=== PATIENT | male | born 1960 | race Caucasian/White ===

== ENCOUNTER 2016-10-24 03:58 | Emergency (ER) | payer BC ==
[~2016-10-24] VITALS: Ht 188 cm; Wt 99.8 kg
[2016-10-24] MEDS ORDERED: AMLODIPINE-BEN1 EAC5 PO (05:00)
[2016-10-24] MEDS ORDERED: LEVEMIR FL100 UNIT/2 SUB-Q (05:00)
[2016-10-24] MEDS ORDERED: HYDROCHLOROTHIA25 MG PO (05:01)
[2016-10-24] MEDS ORDERED: SIMVASTATIN20 MG PO (05:01)
[2016-10-24] MEDS ORDERED: OMEPRAZOLE20 MG PO (05:02)
[2016-10-24] MEDS ORDERED: METFORMIN HCL1000 MG PO (05:02)
[2016-10-24] MEDS ORDERED: GLYXAMBI 25 MG1 EACH PO (05:03)
--- NOTE | 2016-10-24 15:38 | EKG ---
[facility] [address] [place] [address] Signed Sinus rhythm with frequent premature ventricular complexes in a pattern of bigeminy Abnormal QRS-T angle, consider primary T wave abnormality Abnormal ECG No previous ECGs available Confirmed by MOHSEN MORILLO MD ([id number]) on 10/24/2016 3:38:05 PM Electronically Signed By: MOHSEN MORILLO MD 10/24/16 1538 PATIENT NAME: ZELDA OHRT KIM Electrocardiogram DATE OF : 58 PHYSICIAN: MOHSEN MORILLO MD REPORT #: [id number] REPORT IS CONFIDENTIAL AND NOT TO BE RELEASED WITHOUT AUTHORIZATION
== END 2016-10-24 05:41 | disposition home or self-care (01) ==
LOC: ED 03:58
DX: R07.89 Other chest pain (principal); I10 Essential (primary) hypertension; E11.9 Type 2 diabetes mellitus without complications; F17.200 Nicotine dependence, unspecified, uncomplicated; Z88.0 Allergy status to penicillin; Z79.4 Long term (current) use of insulin; Z79.899 Other long term (current) drug therapy
CPT/HCPCS: 71010; 80053; 84484; 85025; 93005; 93010; 99284

== ENCOUNTER 2019-12-27 10:31 | Emergency (ER) | payer OTHER ==
[~2019-12-27] VITALS: Ht 188 cm; Wt 99.8 kg
[~2019-12-27 10:31] MED LIST: AMLODIPINE-BEN1 EAC5 PO; GLYXAMBI 25 MG1 EACH PO; HYDROCHLOROTHIA25 MG PO; LEVEMIR FL100 UNIT/2 SUB-Q; METFORMIN HCL1000 MG PO; OMEPRAZOLE20 MG PO; SIMVASTATIN20 MG PO
[2019-12-27] MEDS ORDERED: TRULICITY1.5 MG/0.5 SUB-Q (10:54)
[2019-12-27] MEDS ORDERED: PIOGLITAZONE HC30 MG PO (10:55)
[2019-12-27] MEDS ORDERED: HYDROCHLOROTHIA50 MG PO (10:56)
[2019-12-27] MEDS ORDERED: ROBAXIN-750750 MG PO (12:17)
== END 2019-12-27 12:26 | disposition home or self-care (01) ==
LOC: ED 10:31
DX: S33.5XXA Sprain of ligaments of lumbar spine, initial encounter (principal)
CPT/HCPCS: 72100; 99283-25

== ENCOUNTER 2022-05-08 01:15 | Emergency (ER) | payer BC ==
[~2022-05-08] VITALS: Ht 188 cm; Wt 99.8 kg
[~2022-05-08 01:15] MED LIST changes: +HYDROCHLOROTHIA50 MG PO; +PIOGLITAZONE HC30 MG PO; +ROBAXIN-750750 MG PO; +TRULICITY1.5 MG/0.5 SUB-Q
[2022-05-08] MEDS ORDERED: METOPROLOL SUCC50 MG PO (01:35)
[2022-05-08] MEDS ORDERED: NOVOLOG MI100 UNIT/1 SUB-Q (01:37)
== END 2022-05-08 02:45 | disposition home or self-care (01) ==
LOC: ED 01:15
DX: R60.0 Localized edema (principal); I10 Essential (primary) hypertension; E11.9 Type 2 diabetes mellitus without complications; F17.200 Nicotine dependence, unspecified, uncomplicated; Z88.0 Allergy status to penicillin; Z79.899 Other long term (current) drug therapy; Z79.4 Long term (current) use of insulin; Z79.84 Long term (current) use of oral hypoglycemic drugs
CPT/HCPCS: 36415; 71045; 80053; 81003; 85025; 85379; 99284-25

== ENCOUNTER 2022-11-07 09:05 | Emergency (ER) | payer OTHER, BC ==
[~2022-11-07] VITALS: Ht 188 cm; Wt 112.0 kg
--- OUTSIDE RECORDS SUMMARY | ~2022-11-07 | XMS | Continuity of Care Document ---
Demographics + + + | Address | [address] | | | [place] [address] | + + + | Preferred Language | Unknown | + + + | Marital Status | | + + + | Hoahaoism Affiliation | Unknown | + + + | Race | White | + + + | Ethnic Group | Not or | + + + Author + + + | Author | [facility] | + + + | Organization | [facility] | + + + | Address | [address] | | | [place] [address] | + + + | Phone | | + + + Care Team Providers + + + + | Care Household Personal Assistant Name | Role | Phone | + + + + Unavailable | Unavailable | + + + + Unavailable | Unavailable | + + + + Allergies and Intolerances + + + + + + | date | description | facility | reaction | severity | + + + + + + | (no date) | Penicillin | [facility] | (no reaction) | (no severity) | [facility] | | | + + + + + + | (no date) | Penicillin | [facility] | (no reaction) | (no severity) | | [facility] | | | + + + + + + | (no date) | Penicillin | [facility] | (no reaction) | (no severity) | [facility] | | | + + + + + + | (no date) | Penicillin | [facility] | (no reaction) | (no severity) | | [facility] | | | + + + + + + Encounters No information. Functional Status No information. Immunizations No information. Medications + + + + | date | description | facility | + + + + | 2019-12-27 00:00 | METHOCARBAMOL | [facility] | + + + + | 2022-05-08 00:00 | DULAGLUTIDE | [facility] | + + + + | 2022-05-08 00:00 | EMPAGLIFLOZIN/LINAGLIPTIN | [facility] | + + + + | 2022-05-08 00:00 | HYDROCHLOROTHIAZIDE | [facility] | + + + + | 2022-05-08 00:00 | OMEPRAZOLE | [facility] | + + + + | 2022-05-08 00:00 | HYDROCHLOROTHIAZIDE | [facility] | + + + + | 2022-05-08 00:00 | PIOGLITAZONE HCL | [facility] | + + + + | 2022-05-08 00:00 | SIMVASTATIN | [facility] | + + + + | 2022-05-08 00:00 | INSULIN DETEMIR | [facility] | + + + + | 2022-05-08 00:00 | METFORMIN HCL | [facility] | + + + + | 2022-05-08 00:00 | METOPROLOL SUCCINATE | [facility] | + + + + | 2022-05-08 00:00 | AMLODIPINE | [facility] | | | BESYLATE/BENAZEPRIL | | + + + + | 2022-05-08 00:00 | INSULN ASP PRT/INSULIN | [facility] | | | ASPART | | + + + + Problems + + + + | date | description | facility | + + + + | 2016-10-24 00:00 | Nonspecific chest pain | [facility] | + + + + | 2022-05-08 00:00 | Edema of both lower | [facility] | | | extremities | | + + + + Procedures No information. Results/Labs +--------+--------+ +---------+--------+---------+ | test | date | facility | value | unit | notes | +--------+--------+ +---------+--------+---------+ + + | Result panel 1 | + + + + + +-------+ + + | | 2022-05-08 | [facility] | 8.7 | (missing) | (missing) | | (unavailable | [facility] | | | | + + + +-------+ + + + + | Result panel 2 | + + + + + +--------+ + + | | 2022-05-08 | [facility] | 68.0 | (missing) | (missing) | | (unavailable | [facility] | | | | + + + +--------+ + + + + | Result panel 3 | + + + + + +--------+ + + | | 2022-05-08 | [facility] | 20.6 | (missing) | (missing) | | (unavailable | [facility] | | | | + + + +--------+ + + + + | Result panel 4 | + + + + + +-------+ + + | | 2022-05-08 | [facility] | 8.5 | (missing) | (missing) | | (unavailable | [facility] | | | | + + + +-------+ + + + + | Result panel 5 | + + + + + +-------+ + + | | 2022-05-08 | [facility] | 1.8 | (missing) | (missing) | | (unavailable | [facility] | | | | + + + +-------+ + + + + | Result panel 6 | + + + + + +-------+ + + | | 2022-05-08 | [facility] | 1.1 | (missing) | (missing) | | (unavailable | [facility] | | | + + + +-------+ + + + + | Result panel 7 | + + + + + +--------+ + + | | 2022-05-08 | [facility] | 0.50 | (missing) | (missing) | | (unavailable | [facility] | | | | + + + +--------+ + + + + | Result panel 8 | + + + + + +--------+ + + | | 2022-05-08 | [facility] | 4.72 | (missing) | (missing) | | (unavailable | [facility] | | | + + + +--------+ + + + + | Result panel 9 | + + + + + +-------+---------+ + | | 2022-05-08 | [facility] | 262 | mg/dL | (missing) | | (unavailable | [facility]08 [facility] | | | + + + +-------+---------+ + + + | Result panel 10 | + + + + + +------+---------+ + | | 2022-05-08 | [facility] | 17 | mg/dL | (missing) | | (unavailable | [facility]08 [facility] | | | + + + +------+---------+ + + + | Result panel 11 | + + + + + +--------+ + + | | 2022-05-08 | [facility] | 13.5 | (missing) | (missing) | | (unavailable | [facility] | | | + + + +--------+ + + + + | Result panel 12 | + + + + + +--------+---------+ + | | 2022-05-08 | [facility] | 1.07 | mg/dL | (missing) | | (unavailable | [facility] | | | + + + +--------+---------+ + + + | Result panel 13 | + + + + + +------+ + + | | 2022-05-08 | [facility] | 78 | (missing) | (missing) | | (unavailable | [facility] | | | + + + +------+ + + + + | Result panel 14 | + + + + + +---------+ + + | | 2022-05-08 | [facility] | 15.88 | (missing) | (missing) | | (unavailable | [facility] | | | | + + + +---------+ + + + + | Result panel 15 | + + + + + +-------+ + + | | 2022-05-08 | [facility] | 138 | (missing) | (missing) | | (unavailable | [facility] | | | + + + +-------+ + + + + | Result panel 16 | + + + + + +-------+ + + | | 2022-05-08 | [facility] | 4.0 | (missing) | (missing) | | (unavailable | [facility] | | | + + + +-------+ + + + + | Result panel 17 | + + + + + +-------+ + + | | 2022-05-08 | [facility] | 101 | (missing) | (missing) | | (unavailable | [facility]08 [facility] | | | + + + +-------+ + + + + | Result panel 18 | + + + + + +------+ + + | | 2022-05-08 | [facility] | 28 | (missing) | (missing) | | (unavailable | [facility]08 [facility] | | | + + + +------+ + + + + | Result panel 19 | + + + + + +--------+ + + | | 2022-05-08 | [facility] | 13.0 | (missing) | (missing) | | (unavailable | [facility] | | | + + + +--------+ + + + + | Result panel 20 | + + + + + +-------+---------+ + | | 2022-05-08 | [facility] | 8.4 | mg/dL | (missing) | | (unavailable | [facility]08 [facility] | | | + + + +-------+---------+ + + + | Result panel 21 | + + + + + +-------+ + + | | 2022-05-08 | [facility] | 7.3 | (missing) | (missing) | | (unavailable | [facility] | | | + + + +-------+ + + + + | Result panel 22 | + + + + + +--------+ + + | | 2022-05-08 | [facility] | 39.9 | (missing) | (missing) | | (unavailable | [facility] | | | + + + +--------+ + + + + | Result panel 23 | + + + + + +-------+ + + | | 2022-05-08 | [facility] | 3.7 | (missing) | (missing) | | (unavailable | [facility] | | | + + + +-------+ + + + + | Result panel 24 | + + + + + +-------+ + + | | 2022-05-08 | [facility] | 3.6 | (missing) | (missing) | | (unavailable | [facility] | | | + + + +-------+ + + + + | Result panel 25 | + + + + + +--------+ + + | | 2022-05-08 | [facility] | 1.03 | (missing) | (missing) | | (unavailable | [facility] | | | + + + +--------+ + + + + | Result panel 26 | + + + + + +-------+ + + | | 2022-05-08 | [facility] | 0.4 | (missing) | (missing) | | (unavailable | [facility] | | | + + + +-------+ + + + + | Result panel 27 | + + + + + +------+ + + | | 2022-05-08 | [facility] | 16 | (missing) | (missing) | | (unavailable | [facility]08 [facility] | | | + + + +------+ + + + + | Result panel 28 | + + + + + +------+ + + | | 2022-05-08 | [facility] | 22 | (missing) | (missing) | | (unavailable | [facility]08 [facility] | | | + + + +------+ + + + + | Result panel 29 | + + + + + +------+ + + | | 2022-05-08 | [facility] | 74 | (missing) | (missing) | | (unavailable | [facility]08 [facility] | | | + + + +------+ + + + + | Result panel 30 | + + + + + +--------+ + + | | 2022-05-08 | [facility] | 84.6 | (missing) | (missing) | | (unavailable | [facility]08 [facility] | | | + + + +--------+ + + + + | Result panel 31 | + + + + + +--------+ + + | | 2022-05-08 | [facility] | 28.6 | (missing) | (missing) | | (unavailable | [facility]08 [facility] | | | + + + +--------+ + + + + | Result panel 32 | + + + + + +--------+ + + | | 2022-05-08 | [facility] | 33.7 | (missing) | (missing) | | (unavailable | [facility]08 [facility] | | | + + + +--------+ + + + + | Result panel 33 | + + + + + +--------+ + + | | 2022-05-08 | [facility] | 14.8 | (missing) | (missing) | | (unavailable | [facility] | | | + + + +--------+ + + + + | Result panel 34 | + + + + + +-------+ + + | | 2022-05-08 | [facility] | 257 | (missing) | (missing) | | (unavailable | [facility]08 [facility] | | | + + + +-------+ + + + + | Result panel 35 | + + + + + + + + + | | 2022-05-08 | [facility] | YELLOW | (missing) | (missing) | | (unavailable | [facility]23:08 [facility] | | | | + + + + + + + + + | Result panel 36 | + + + + + +---------+ + + | | 2022-05-08 | [facility] | CLEAR | (missing) | (missing) | | (unavailable | [facility]23[facility]08 [facility] | | | | + + + +---------+ + + + + | Result panel 37 | + + + + + + + + + | | 2022-05-08 | [facility] | MODERATE | (missing) | (missing) | | (unavailable | [facility]23:08 [facility] | | | | + + + + + + + + + | Result panel 38 | + + + + + + + + + | | 2022-05-08 | [facility] | NEGATIVE | (missing) | (missing) | | (unavailable | [facility]23:08 [facility] | | | | + + + + + + + + + | Result panel 39 | + + + + + + + + + | | 2022-05-08 | [facility] | NEGATIVE | (missing) | (missing) | | (unavailable | [facility]23:08 [facility] | | | | + + + + + + + + + | Result panel 40 | + + + + + +---------+ + + | | 2022-05-08 | [facility] | 1.025 | (missing) | (missing) | | (unavailable | [facility]23:08 [facility] | | | | + + + +---------+ + + + + | Result panel 41 | + + + + + + + + + | | 2022-05-08 | [facility] | NEGATIVE | (missing) | (missing) | | (unavailable | [facility]23[facility]08 [facility] | | | + + + + + + + + + | Result panel 42 | + + + + + +-------+ + + | | 2022-05-08 | [facility] | 6.0 | (missing) | (missing) | | (unavailable | [facility]23:08 [facility] | | | + + + +-------+ + + + + | Result panel 43 | + + + + + +-------+ + + | | 2022-05-08 | [facility] | 100 | (missing) | (missing) | | (unavailable | [facility]23:08 [facility] | | | + + + +-------+ + + + + | Result panel 44 | + + + + + + + + + | | 2022-05-08 | [facility] | NORMAL | (missing) | (missing) | | (unavailable | [facility]23:08 [facility] | | | + + + + + + + + + | Result panel 45 | + + + + + + + + + | | 2022-05-08 | [facility] | NEGATIVE | (missing) | (missing) | | (unavailable | [facility]23:08 [facility] | | | | + + + + + + + + + | Result panel 46 | + + + + + + + + + | | 2022-05-08 | [facility] | NEGATIVE | (missing) | (missing) | | (unavailable | [facility]08 [facility] | | | | + + + + + + + Social History No information. Vital Signs + + + +---------+ | date | measurement | value | units | + + + +---------+ | 2022-05-08 00:00 | BMI | 28.2 | kg/m2 | + + + +---------+ | 2022-05-08 00:00 | BP_diastolic | 70 | mmHg | + + + +---------+ | 2022-05-08 00:00 | BP_systolic | 165 | mmHg | + + + +---------+ | 2022-05-08 00:00 | heart_rate | 61 | /min | + + + +---------+ | 2022-05-08 00:00 | height_metric | 187.96 | cm | + + + +---------+ | 2022-05-08 00:00 | height_standard | 74 | in | + + + +---------+ | 2022-05-08 00:00 | o2_saturation | 100 | % | + + + +---------+ | 2022-05-08 00:00 | respiration_rate | 19 | /min | + + + +---------+ | 2022-05-08 00:00 | temperature_metric | 37.06 | C | | | | | | + + + +---------+ | 2022-05-08 00:00 | | 98.7 | F | | | temperature_standar | | | | | d | | | + + + +---------+ | 2022-05-08 00:00 | weight_metric | 99.79 | kg | + + + +---------+ | 2022-05-08 00:00 | weight_standard | 220 | lb | + + + +---------+"
--- OUTSIDE RECORDS SUMMARY | ~2022-11-07 | XMS | Continuity of Care Document ---
Demographics + + + | Address | [address] | | | [place] [address] | + + + | Preferred Language | Unknown | + + + | Marital Status | | + + + | Yarsani Affiliation | Unknown | + + + | Race | White | + + + | Ethnic Group | Not or | + + + Author + + + | Author | [facility] | + + + | Organization | [facility] | + + + | Address | [address] | | | [place] [address] | + + + | Phone | | + + + Care Team Providers + + + + | Care Nursing Assistant Name | Role | Phone | [...] + | 2019-12-27 00:00 | METHOCARBAMOL | [facility] | + + + + | 2022-05-08 00:00 | DULAGLUTIDE | [facility] | + + + + | 2022-05-08 00:00 | EMPAGLIFLOZIN/LINAGLIPTIN | [facility] | + + + + | 2022-05-08 00:00 | HYDROCHLOROTHIAZIDE | [facility] | + + + + | 2022-05-08 00:00 | OMEPRAZOLE | [facility] | + + + + | 2022-05-08 00:00 | HYDROCHLOROTHIAZIDE | [facility] | + + + + | 2022-05-08 00:00 | PIOGLITAZONE HCL | [facility] | + + + + | 2022-05-08 00:00 | SIMVASTATIN | [facility] | + + + + | 2022-05-08 00:00 | INSULIN DETEMIR | [facility] | + + + + | 2022-05-08 00:00 | METFORMIN HCL | [facility] | + + + + | 2022-05-08 00:00 | METOPROLOL SUCCINATE | [facility] | + + + + | 2022-05-08 00:00 | AMLODIPINE | [facility] | | | BESYLATE/BENAZEPRIL | | + + + + | 2022-05-08 00:00 | INSULN ASP PRT/INSULIN | [facility] | | | ASPART | | + + + + Problems + + + + | date | description | facility | + + + + | 2016-10-24 00:00 | Nonspecific chest pain | [facility] | + + + + | 2022-05-08 00:00 | Edema of both lower | [facility] | | | extremities | | + [...]
[~2022-11-07 09:05] MED LIST changes: +METOPROLOL SUCC50 MG PO; +NOVOLOG MI100 UNIT/1 SUB-Q
[2022-11-07] MEDS ORDERED: CYCLOBENZAPRINE10 MG PO (09:54)
[2022-11-07] MEDS ORDERED: PREDNISONE20 MG PO (09:54)
[2022-11-07 10:09] VITALS: BP 141/82
== END 2022-11-07 10:10 | disposition home or self-care (01) ==
LOC: ED 09:05
DX: M54.41 Lumbago with sciatica, right side (principal); I10 Essential (primary) hypertension; E11.9 Type 2 diabetes mellitus without complications; F17.200 Nicotine dependence, unspecified, uncomplicated; Z88.0 Allergy status to penicillin; Z79.899 Other long term (current) drug therapy; Z79.4 Long term (current) use of insulin
CPT/HCPCS: 99406